=== PATIENT | female | born 2000 | race Caucasian/White ===

== ENCOUNTER 2019-09-11 18:38 | Emergency (ER) | payer OTHER ==
[~2019-09-11] VITALS: Ht 149.9 cm; Wt 54.4 kg
[2019-09-11] MEDS ORDERED: IBUPROFEN 800800 M1 PO (19:08)
[2019-09-11 20:02] VITALS: BP 111/69
== END 2019-09-11 20:04 | disposition home or self-care (01) ==
LOC: ER 18:38
DX: J02.0 Streptococcal pharyngitis (principal)